=== PATIENT | male | born 1970 | race Caucasian/White ===

== ENCOUNTER 2020-05-13 04:14 | Emergency (ER) | payer OTHER ==
[~2020-05-13] VITALS: Ht 182.9 cm; Wt 99.8 kg
--- NOTE | 2020-05-13 04:15 | NUR ---
Placed patient on seizure precautions.
--- NOTE | 2020-05-13 04:20 | NUR ---
Dr. Gonzalez at bedside for MSE.
[2020-05-13] MEDS ORDERED: LISI-603 PO (04:29)
[2020-05-13] MEDS ORDERED: EMPA10TA PO (04:29)
[2020-05-13] MEDS ORDERED: REPA2TAB PO (04:29)
[2020-05-13] MEDS ORDERED: ATOR20TA27 PO (04:29)
[2020-05-13] MEDS ORDERED: SITA1TBM4 PO (04:29)
[2020-05-13] MEDS ORDERED: IV NORMAL SALINE 1000 ML BAG IV ONE (04:30)
--- NOTE | 2020-05-13 04:32 | NUR ---
Patient's at bedside.
[2020-05-13 04:40] LABS: BASOPHILS # (AUTO) 0.1 K/uL (0.0-8.0); BASOPHILS % (AUTO) 0.7 % (0.0-2.0); EOSINOPHILS # (AUTO) 0.2 K/uL (0.0-0.7); HEMATOCRIT 50.1 % (36.7-47.1); HEMOGLOBIN 17.3 g/dL (12.5-16.3); LYMPHOCYTES # (AUTO) 2.8 K/uL (20.0-40.0); LYMPHOCYTES % (AUTO) 27.8 % (20.5-51.5); MEAN CORPUSCULAR HEMOGLOBIN 33.4 uug (23.8-33.4); MEAN CORPUSCULAR HGB CONC 34 g/dL (32.5-36.3); MEAN CORPUSCULAR VOLUME 96.9 fL (73.0-96.2); MONOCYTES # (AUTO) 0.6 K/uL (2.0-10.0); MONOCYTES % (AUTO) 5.5 % (0.0-11.0); NEUTROPHILS # (AUTO) 6.5 K/uL (1.8-8.9); PLATELET COUNT (AUTO) 223 K/uL (152-348); RED BLOOD CELL COUNT(AUTO) 5.18 MIL/uL (4.06-5.63); WHITE BLOOD COUNT (AUTO) 10.1 K/uL (3.6-10.2)
--- NOTE | 2020-05-13 04:44 | NUR ---
Pt out of ER for CT.
[2020-05-13 04:45] LABS: CARBON DIOXIDE 20 mmol/L (21-32); CHLORIDE 103 mmol/L (98-107); CREATININE 1.6 mg/dL (0.6-1.3); GLUCOSE 208 mg/dL (74-106); POTASSIUM 4.2 mmol/L (3.5-5.1); UREA NITROGEN, BLOOD 12 mg/dL (7-18)
[2020-05-13 04:51] LABS: ALANINE AMINOTRANSFERASE 47 U/L (16-63); ALKALINE PHOSPHATASE 106 U/L (50-136); ASPARTATE AMINOTRANSFERASE 32 U/L (15-37); BILIRUBIN,DIRECT 0.2 mg/dL (0.0-0.2); ETHANOL < 3 MG/DL (0-0); TOTAL PROTEIN, SERUM 8.5 g/dL (6.4-8.2)
--- NOTE | 2020-05-13 04:52 | NUR ---
Pt provided urine sample, sent to lab.
--- NOTE | 2020-05-13 05:02 | NUR ---
Pt back to ER from CT.
[2020-05-13 05:14] LABS: *AMPHETAMINE, URINE NEGATIVE (NEGATIVE); *BARBITURATE, URINE NEGATIVE (NEGATIVE); *CANNABINOID, URINE NEGATIVE (NEGATIVE); *COCCAINE, URINE NEGATIVE (NEGATIVE); *OPIATE, URINE NEGATIVE (NEGATIVE); *PHENCYCLIDINE SCREEN,URINE NEGATIVE (NEGATIVE)
[2020-05-13] MEDS ORDERED: NEOMY/BACITRA/POLYMYXIN B OINT UD PACKET TP ONE ×2 (05:44→05:45)
--- NOTE | 2020-05-13 06:04 | NUR ---
Patient discharged to home in stable condition. Written and verbal after care instructions given. Patient verbalizes understanding of instructions. Stressed follow up or return to ER for worsening s/s. Patient ambulated out of ER via wheelchair, accompanied by , no acute signs of distress, VSS, all belongings taken, IV site discontinued, to be driven home by son via private vehicle, provided with copies of lab and radiology reports.
[2020-05-13 06:06] VITALS: BP 138/97
== END 2020-05-13 06:06 | disposition home or self-care (01) ==
LOC: ER 04:19
DX: R56.9 Unspecified convulsions (principal); E86.0 Dehydration; R00.0 Tachycardia, unspecified; R94.4 Abnormal results of kidney function studies; E11.65 Type 2 diabetes mellitus with hyperglycemia; Z79.82 Long term (current) use of aspirin; S01.01XA Laceration without foreign body of scalp, initial encounter; X58.XXXA Exposure to other specified factors, initial encounter; Y92.032 Bedroom in apartment as the place of occurrence of the external cause; S00.572A Other superficial bite of oral cavity, initial encounter; Z83.3 Family history of diabetes mellitus
CPT/HCPCS: 36415; 70030-TC; 70450; 71045; 80307; 83735; 85025; 85730; 93005; A4663; G0480; J7030